=== PATIENT | male | born 1965 | race Caucasian/White ===

== ENCOUNTER → 2016-07-04 | Outpatient (CLI) | payer OTHER | LOC: KOH-I 13:00 | DX: M51.36 Other intervertebral disc degeneration, lumbar region (principal); M54.5 Low back pain; R52 Pain, unspecified; Z98.1 Arthrodesis status | CPT/HCPCS: 72131 ==

== ENCOUNTER 2021-02-18 04:07 | Emergency (ER) | payer OTHER ==
[~2021-02-18 04:07] MED LIST: ASPIR 8181 MG PO; FENOFIBRATE54 MG PO; GLUCOPHAGE 500500 MG PO; HABITROL 21 MG P1 EA TD; LANTUS INS100 UTS/M1 SC; LASIX 40 MG TAB40 MG PO; LASIX40 MG PO; LIPITOR TAB 2020 MG PO; LOPRESSOR50 MG PO; METHADONE HCL T10 MG PO; METOPROLOL TART50 MG PO; NITROSTAT 0.40.4 MG SL; NORVASC 5 MG TAB5 MG PO; NORVASC10 MG PO; PLAVIX 75 MG TA75 MG PO; PROZAC20 MG PO; TRULICITY0.75 MG/0. SQ; ZESTRIL 40 MG T40 MG PO; ZESTRIL40 MG PO
[2021-02-18 05:14] LABS: HEMOGLOBIN 15.9 gm/dl (14.0-17.5); RED BLOOD COUNT 6.01 M/UL (4.20-5.50); WHITE BLOOD COUNT 10.4 K/UL (4.5-11.0)
== END 2021-02-18 13:40 | disposition short-term general hospital (02) ==
LOC: ER1 04:07
PROVIDERS: Family Medicine
DX: I63.9 Cerebral infarction, unspecified (principal); G83.24 Monoplegia of upper limb affecting left nondominant side; G83.14 Monoplegia of lower limb affecting left nondominant side; R29.707 NIHSS score 7; E11.9 Type 2 diabetes mellitus without complications; N28.9 Disorder of kidney and ureter, unspecified; F17.200 Nicotine dependence, unspecified, uncomplicated; E78.5 Hyperlipidemia, unspecified; Z95.1 Presence of aortocoronary bypass graft; I11.9 Hypertensive heart disease without heart failure; Z79.4 Long term (current) use of insulin; Z79.02 Long term (current) use of antithrombotics/antiplatelets; Z79.82 Long term (current) use of aspirin; Z95.810 Presence of automatic (implantable) cardiac defibrillator; Z86.79 Personal history of other diseases of the circulatory system
CPT/HCPCS: 70450; 71045; 80053; 82009; 82550; 82553; 83874; 84484; 85025; 85610; 93005; 96374; 99285; J1885

== ENCOUNTER 2021-05-20 14:06 | Observation (INO) | payer OTHER ==
[2021-05-20 15:23] LABS: HEMOGLOBIN 16.4 gm/dl (14.0-17.5); RED BLOOD COUNT 5.6 M/UL (4.20-5.50); WHITE BLOOD COUNT 11.4 K/UL (4.5-11.0)
[2021-05-20 15:45] LABS: BUN/CREATININE RATIO 26 (0-10)
== END 2021-05-20 18:50 | disposition left against medical advice (07) ==
LOC: ER1 14:06 → CDU 17:36 → M/S 18:40
PROVIDERS: Emergency Medicine; ADMIT Internal Medicine
DX: R06.02 Shortness of breath (principal); Z20.822 Contact with and (suspected) exposure to COVID-19; I25.10 Atherosclerotic heart disease of native coronary artery without angina pectoris; E78.5 Hyperlipidemia, unspecified; I16.0 Hypertensive urgency; I11.0 Hypertensive heart disease with heart failure; I50.9 Heart failure, unspecified; F17.210 Nicotine dependence, cigarettes, uncomplicated; E11.9 Type 2 diabetes mellitus without complications; I69.354 Hemiplegia and hemiparesis following cerebral infarction affecting left non-dominant side; I48.91 Unspecified atrial fibrillation; Z53.29 Procedure and treatment not carried out because of patient's decision for other reasons; R79.89 Other specified abnormal findings of blood chemistry; Z79.01 Long term (current) use of anticoagulants; Z79.899 Other long term (current) drug therapy; Z95.1 Presence of aortocoronary bypass graft; Z95.810 Presence of automatic (implantable) cardiac defibrillator
CPT/HCPCS: 36600; 70491; 71045; 71250; 80053; 82550; 82553; 82803; 83036; 83605; 83880; 84439; 84443; 84484; 85025; 85379; 86140; 87040; 93005; 94664; 94760; 99285; J0696; J7070; Q9967; U0002

== ENCOUNTER 2021-05-21 20:00 | Emergency (ER) | payer OTHER | END 2021-05-21 21:36 | disposition left against medical advice (07) | LOC: ER1 20:00 | DX: I63.9 Cerebral infarction, unspecified (principal); G81.94 Hemiplegia, unspecified affecting left nondominant side; R06.00 Dyspnea, unspecified; I10 Essential (primary) hypertension; R00.0 Tachycardia, unspecified; I25.10 Atherosclerotic heart disease of native coronary artery without angina pectoris | CPT/HCPCS: 93005; 99284 ==

== ENCOUNTER → 2021-06-09 | Outpatient (CLI) | payer OTHER ==
[2021-06-09 15:56] LABS: HEMOGLOBIN 14.3 gm/dl (14.0-17.5); RED BLOOD COUNT 4.97 M/UL (4.20-5.50); WHITE BLOOD COUNT 10.9 K/UL (4.5-11.0)
[2021-06-09 16:31] LABS: BUN/CREATININE RATIO 12 (0-10)
== END ==
LOC: LAB 14:10
PROVIDERS: Surgery
DX: R13.19 Other dysphagia (principal)
CPT/HCPCS: 36415; 71046; 80048; 85025; 93005